=== PATIENT | male | born 1965 | race Two or more races ===

== ENCOUNTER 2022-01-17 19:15 | Emergency (ER) | payer OTHER ==
[~2022-01-17] VITALS: Ht 165.1 cm; Wt 81.6 kg
[2022-01-17] MEDS ORDERED: ZESTORETIC 10-1 EACH (19:36)
[2022-01-17] MEDS ORDERED: TENORMIN100 M1 (19:36)
[2022-01-17] MEDS ORDERED: LAMICTAL5 MG (19:36)
== END 2022-01-17 21:38 | disposition home or self-care (01) ==
LOC: ER 19:15
DX: T46.4X5A Adverse effect of angiotensin-converting-enzyme inhibitors, initial encounter (principal); I10 Essential (primary) hypertension; Z88.0 Allergy status to penicillin; E78.00 Pure hypercholesterolemia, unspecified; Z82.49 Family history of ischemic heart disease and other diseases of the circulatory system

== ENCOUNTER 2022-05-18 23:47 | Emergency (ER) | payer OTHER ==
[~2022-05-18] VITALS: Ht 165.1 cm; Wt 83.9 kg
[~2022-05-18 23:47] MED LIST: LAMICTAL5 MG; TENORMIN100 M1; ZESTORETIC 10-1 EACH
[2022-05-19] MEDS ORDERED: BACTRIM DS TAB1 EACH PO (01:06)
== END 2022-05-19 | disposition home or self-care (01) ==
LOC: ER 23:47
DX: S90.862A Insect bite (nonvenomous), left foot, initial encounter (principal); W57.XXXA Bitten or stung by nonvenomous insect and other nonvenomous arthropods, initial encounter; Y93.89 Activity, other specified; Y92.018 Other place in single-family (private) house as the place of occurrence of the external cause; Y99.9 Unspecified external cause status; Z88.0 Allergy status to penicillin

== ENCOUNTER 2023-09-02 13:55 | Inpatient (IN) | payer OTHER ==
[~2023-09-02] VITALS: Ht 165.1 cm; Wt 72.6 kg
[~2023-09-02 13:55] MED LIST changes: +BACTRIM DS TAB1 EACH PO
[2023-09-02] MEDS ORDERED: AMLODIPINE-OLM1 EAC2 (14:37)
[2023-09-02] MEDS ORDERED: LAMOTRIGINE25 MG (14:38)
[2023-09-02] MEDS ORDERED: PLAVIX75 MG (14:38)
[2023-09-02] MEDS ORDERED: TENORMIN25 MG (14:38)
[2023-09-02] MEDS ORDERED: ISOSORBIDE DINI30 MG (14:40)
[2023-09-02 15:29] LABS: HEMATOCRIT 37.5 % (39.0-48.0); HEMOGLOBIN 13.1 g/dL (13-16.00); MEAN CELL VOLUME 89.5 fL (80.0-100.00); MEAN CORPUSCULAR HEMOGLOBIN 31.3 pg (27.00-32.0); RED BLOOD COUNT 4.19 M/uL (4.00-6.00); RED CELL DISTRIBUTION WIDTH 12.1 % (11.5-14.5)
[2023-09-02 16:08] LABS: PLATELET COUNT 54 K/uL (150-450)
[2023-09-02] MEDS ORDERED: 0.9 % SODIUM CHLORIDE 500 ML IV ONE (17:45)
[2023-09-02] MEDS ORDERED: 0.9 % SODIUM CHLORIDE 1,000 ML IV SCH (21:30)
[2023-09-02] MEDS ORDERED: METHYLPREDNISOLONE SOD SUCC 40 MG VIAL IV ONE (21:30)
[2023-09-02] MEDS ORDERED: ACETAMINOPHEN 500 MG GEL..CAP PO PRN (21:30)
[2023-09-02 23:09] LABS: PH,URINE 6.5 (5.0-8.0); URINE APPEARANCE Clear; URINE BILIRRUBIN Negative (NEGATIVE); URINE BLOOD Negative; URINE COLOR Yellow; URINE GLUCOSE Negative (NEGATIVE); URINE LEUKOCYTE Negative; URINE NITRATE Negative; URINE PROTEIN Negative (NEGATIVE); URINE UROBILINOGEN 0.2 E.U./dl
[2023-09-02 23:23] LABS: URINE BACTERIA 3.7 uL (0.0-1933); URINE EPITHELIAL CELLS 0.9 uL (0.0-38.8); URINE RBC 1.5 uL (0.0-20.8); URINE WBC 0.3 uL (0.0-23.2)
[2023-09-02 23:32] LABS: INR 1.05; PARTIAL THROMBOPLASTIN TIME 31.1 SECONDS (22.0-34.0)
[2023-09-03] MEDS ORDERED: PANTOPRAZOLE SODIUM 40 MG/VIAL VIAL IV SCH (09:00)
[2023-09-03 14:00] LABS: FERRITIN 1219.7 NG/ML (26-388)
[2023-09-03 14:20] LABS: FOLIC ACID > 20.00 ng/ml (4.78-20)
[2023-09-03] MEDS ORDERED: VITAMIN B COMPLEX 1 EACH PO SCH (17:00)
[2023-09-04 06:27] LABS: HEMATOCRIT 35.5 % (39.0-48.0); HEMOGLOBIN 12.6 g/dL (13-16.00); MEAN CELL VOLUME 88.3 fL (80.0-100.00); MEAN CORPUSCULAR HEMOGLOBIN 31.4 pg (27.00-32.0); MEAN CORPUSCULAR HGB CONC 35.6 g/dl (32.0-36.0); RED BLOOD COUNT 4.02 M/uL (4.00-6.00); RED CELL DISTRIBUTION WIDTH 12.1 % (11.5-14.5)
[2023-09-04 06:56] LABS: ALBUMIN 3.2 gm/dL (3.4-5.0); BILIRUBIN TOTAL 0.38 mg/dL (0.3-1.2); CALCIUM 8.3 mg/dL (8.5-10.1); CREATININE SERUM 1.01 mg/dL (0.70-1.30); GFR 76.41; GLOBULINA 3.8 G/DL (2.4-3.5); POTASSIUM 3.84 mEq/L (3.5-5.1)
[2023-09-04 08:06] LABS: PLATELET COUNT 72 K/uL (150-450)
[2023-09-04 08:09] LABS: MANUAL PLATELET COUNT 134
[2023-09-04] MEDS ORDERED: Cyanocobalamin/Mecobalamin 1 TAB.SL SL SCH (09:00)
== END 2023-09-04 10:38 | disposition home or self-care (01) | DRG 866 ==
LOC: ER 13:56 → SEC-K 21:35 → MEDI 09-03 21:25
PROVIDERS: General Practice; Internal Medicine Hematology & Oncology; Nurse Practitioner Family; ADMIT Internal Medicine; ATTEND Internal Medicine
PROC: BW40ZZZ Ultrasonography of Abdomen (ICD-10-PCS; principal; 2023-09-03)
DX: A90 Dengue fever [classical dengue] (principal); D69.6 Thrombocytopenia, unspecified; I25.10 Atherosclerotic heart disease of native coronary artery without angina pectoris

== ENCOUNTER 2023-11-22 18:16 | Emergency (ER) | payer OTHER ==
[~2023-11-22] VITALS: Ht 165.1 cm; Wt 74.8 kg
[~2023-11-22 18:16] MED LIST changes: +AMLODIPINE-OLM1 EAC2; +ISOSORBIDE DINI30 MG; +LAMOTRIGINE25 MG; +PLAVIX75 MG; +TENORMIN25 MG
[2023-11-22] MEDS ORDERED: KETOROLAC TROMETHAMINE 60 MG VIAL IM ONE (19:00)
[2023-11-22] MEDS ORDERED: LIDOCAINE HCL 1% 10ML VIAL PERCUT ONE (19:00)
[2023-11-22] MEDS ORDERED: CIPROFLOXACIN HCL 750 MG TABLET PO ONE (19:00)
[2023-11-22] MEDS ORDERED: CLINDAMYCIN PHOSPHATE 150 MG/ML (300mg) IM ONE (19:00)
[2023-11-22] MEDS ORDERED: TETANUS & DIPHTHERIA TOX,ADULT 0.5 ML VIAL IM ONE (19:00)
[2023-11-22] MEDS ORDERED: PEPCID AC20 MG PO (19:22)
[2023-11-22] MEDS ORDERED: CIPRO250 MG PO (19:22)
== END 2023-11-22 20:26 | disposition home or self-care (01) ==
LOC: ER 18:17
DX: S61.012A Laceration without foreign body of left thumb without damage to nail, initial encounter (principal); X78.8XXA Intentional self-harm by other sharp object, initial encounter; Y93.89 Activity, other specified; Y92.89 Other specified places as the place of occurrence of the external cause; Y99.8 Other external cause status; I10 Essential (primary) hypertension; Z88.0 Allergy status to penicillin

== ENCOUNTER 2023-12-04 13:44 | Emergency (ER) | payer OTHER ==
[~2023-12-04] VITALS: Ht 165.1 cm; Wt 74.8 kg
[~2023-12-04 13:44] MED LIST changes: +CIPRO250 MG PO; +PEPCID AC20 MG PO
== END 2023-12-04 14:45 | disposition home or self-care (01) ==
LOC: ER 13:46
DX: Z48.02 Encounter for removal of sutures (principal); Z88.0 Allergy status to penicillin

== ENCOUNTER → 2024-06-08 | Emergency (ER) | payer OTHER ==
[~2024-06-08] VITALS: Ht 165.1 cm; Wt 74.8 kg
== END | disposition home or self-care (01) ==
LOC: ER 11:26
DX: R00.1 Bradycardia, unspecified (principal); I25.10 Atherosclerotic heart disease of native coronary artery without angina pectoris; I50.9 Heart failure, unspecified; E78.00 Pure hypercholesterolemia, unspecified; I11.0 Hypertensive heart disease with heart failure; Z88.0 Allergy status to penicillin